=== PATIENT | female | born 1970 | race Caucasian/White ===

== ENCOUNTER 2020-11-17 15:09 | Emergency (ER) | payer BC ==
[~2020-11-17] VITALS: Ht 154.9 cm; Wt 89.5 kg
[2020-11-17 15:11] VITALS: BP 118/77; Ht 154.9 cm; Wt 89.5 kg
[2020-11-17] MEDS ORDERED: ZPAK PO (17:39)
[2020-11-17] MEDS ORDERED: BACLOFEN20 M1 PO (17:39)
[2020-11-17] MEDS ORDERED: VOLTAREN75 MG PO (17:39)
[2020-11-17] MEDS ORDERED: MEDROL DOSE PACK4 MG PO (17:39)
== END 2020-11-17 18:18 | disposition home or self-care (01) ==
LOC: D.ER 15:09
DX: R07.89 Other chest pain (principal); I10 Essential (primary) hypertension; Z72.0 Tobacco use; W01.0XXA Fall on same level from slipping, tripping and stumbling without subsequent striking against object, initial encounter; Y93.9 Activity, unspecified; Y92.9 Unspecified place or not applicable

== ENCOUNTER 2020-12-08 15:20 | Outpatient (CLI) | payer BC ==
[2020-11-17 15:11] VITALS: BMI 37.3
[~2020-12-08 15:20] MED LIST: BACLOFEN20 M1 PO; MEDROL DOSE PACK4 MG PO; VOLTAREN75 MG PO; ZPAK PO
== END 2020-12-08 23:59 | disposition home or self-care (01) ==
LOC: D.MAMMO 15:20
PROVIDERS: ATTEND Nurse Practitioner Family
DX: Z12.31 Encounter for screening mammogram for malignant neoplasm of breast (principal)